=== PATIENT | male | born 1990 | race Caucasian/White ===

== ENCOUNTER 2021-10-07 18:19 | Emergency (ER) | payer BC ==
[~2021-10-07] VITALS: Ht 175.3 cm; Wt 70.3 kg
== END 2021-10-07 22:44 | disposition home or self-care (01) ==
LOC: ER 18:19
DX: U07.1 COVID-19 (principal); R50.9 Fever, unspecified

== ENCOUNTER 2021-10-08 08:54 | Outpatient (CLI) | payer BC | END 2021-10-08 10:25 | disposition home or self-care (01) | LOC: ASH CLINIC 08:54 | PROVIDERS: ATTEND General Practice | DX: Z23 Encounter for immunization (principal); U07.1 COVID-19 ==